=== PATIENT | female | born 1960 | race Caucasian/White ===

== ENCOUNTER 2016-09-24 09:13 | Day surgery (SDC) | payer MEDICARE ==
--- NOTE | 2016-09-24 07:56 | HP ---
DATE OF SURGERY: 09/24/2016 HISTORY OF PRESENT ILLNESS: The patient is a 56 year-old with no prior colonoscopy, no bloody stools, no change in bowel movements or pain. Father with colon cancer and in need of screening colonoscopy. PAST MEDICAL HISTORY: Diabetes. History of some congestive heart failure years ago. PAST SURGICAL HISTORY: Total left knee. Left wrist surgery. Hysterectomy. Cholecystectomy. Three back surgeries. She also had gastric bypass in the past. MEDICATIONS: Doxycycline, buspirone. ALLERGIES: SENSITIVE TO CODEINE. COMPAZINE. HYDROCODONE. CORTISONE. FAMILY HISTORY: Breast cancer and colon cancer. SOCIAL HISTORY: One pack a day smoker. No alcohol abuse. REVIEW OF SYSTEMS: Twelve systems reviewed per admission assessment. No chest pain or palpitations other systems negative or noncontributory as above and per preadmission questionnaire. PHYSICAL EXAMINATION: GENERAL: No acute distress. HEENT: Sclerae nonicteric. NECK: No JVD. CHEST: Equal excursion, nonlabored breathing. CVS: Regular rate and rhythm. ABDOMEN: Soft. No peritoneal signs. EXTREMITIES: No edema or cyanosis. NEURO: Alert, moving extremities symmetrically. No gross motor deficits noted. RECTAL: Deferred timed to endoscopy exam. IMPRESSION: Family history of colon cancer in need of screening colonoscopy as she has not had a prior one. I feel she is a candidate. She was shown the risk sheet, explained the procedure in detail but not limited to bleeding or infection, small risk of bowel injury or perforation possibly requiring open procedure, small risk of missed or nondiagnosis or incomplete exam possibly requiring barium enema, other studies or procedures, general risk of anesthesia or sedation but not limited to. She understands and agrees to the planned procedure and will proceed with outpatient colonoscopy.
[~2016-09-24 09:13] MED LIST: DIPRIVAN 200 MG/20 ML IV ONE; Versed 2 MG/2 ML Injection IV ONE
[2016-09-24] MEDS ORDERED: Lactated Ringers 1,000 ML IV SCH (10:00)
[2016-09-24] MEDS ORDERED: Lactated Ringers 1,000 ML IV ONE (10:54)
[2016-09-24 11:32] VITALS: BP 155/73; PULSE 50; O2SAT 99
--- NOTE | 2016-09-24 11:35 | OP ---
SURGERY DATE/TIME: 09/24/2016 1025 PREOPERATIVE DIAGNOSIS: Need for screening colonoscopy. Family history of colon cancer. POSTOPERATIVE DIAGNOSES: 1) Poor prep limiting exam. 2) Polyp ascending colon. 3) Small raised lesions hepatic flexure, rectosigmoid and rectum. 4) Diverticulosis. 5) Small internal and external hemorrhoids. PROCEDURES: 1) Colonoscopy to terminal ileum with biopsy to terminal ileum and retrograde ileoscopy with hot biopsy of terminal ileum. 2) Hot snare polypectomy ascending colon polyp. 3) Hot biopsy removal of small raised lesion hepatic flexure fold. 4) Hot biopsy removal of small early polyps versus hyperplastic lesions rectosigmoid colon and rectum. SURGEON: Dr. Mohit Peguero. ANESTHESIA: MAC. ESTIMATED BLOOD LOSS: Minimal. INDICATIONS: As noted above. Risks and benefits explained in detail but not limited to and consent obtained. DESCRIPTION OF PROCEDURE AND FINDINGS: The patient is taken to the operating room. MAC anesthesia introduced. After official time out and no disagreement with planned procedure, digital rectal exam did not reveal any rectal masses. Video colonoscope inserted and passed up the tortuous poorly prepped colon with semisolid and liquidy stool throughout the colon. Slowly and carefully navigated around to terminal ileum and appendiceal orifice and valve well visualized. Retrograde ileoscopy was performed. Ileum was grossly unremarkable. There was one small raised lesion. It was felt like this was normal hyperplastic nodule of the terminal ileum but it was removed with hot biopsy forceps. Good hemostasis noted. No gross signs of Crohn's disease or inflammatory bowel disease. The scope is carefully withdrawn from ascending colon. Small polyp was removed with hot snare polypectomy with brief bursts of cautery elevating well away from bowel wall. Good hemostasis noted. The scope is carefully withdrawn. The hepatic flexure, ascending across the transverse colon there was raised area on a fold whether just hyperplastic versus early polyp it was removed with hot biopsy forceps in two pieces in piecemeal fashion. Good hemostasis noted. Otherwise the scope was carefully withdrawn. She had some diverticula in the left colon. There were no signs of any large polyps, masses or obstructing lesions. She had multiple small raised lesions in the rectosigmoid and possible rectum. These were removed with hot biopsy forceps with brief bursts of cautery elevating well away from bowel wall. Otherwise she had some internal and external hemorrhoids. There were no signs of any large polyps, masses or obstructing lesions. Again the prep was very poor limiting the exam. It was felt if the path is benign on all accounts likely would benefit from colonoscopy in no later than two years given her poor quality prep and multiple polyps. The patient tolerated the procedure well. Findings discussed with the family out in the waiting area.
== END 2016-09-24 11:45 | disposition home or self-care (01) ==
LOC: SDC 09:13
PROVIDERS: ATTEND Surgery
PROC: 0DBK8ZX Excision of Ascending Colon, Via Natural or Artificial Opening Endoscopic, Diagnostic (ICD-10-PCS; principal; 2016-09-24)
PROC: 0DBB8ZX Excision of Ileum, Via Natural or Artificial Opening Endoscopic, Diagnostic (ICD-10-PCS; 2016-09-24)
PROC: 0DBP8ZX Excision of Rectum, Via Natural or Artificial Opening Endoscopic, Diagnostic (ICD-10-PCS; 2016-09-24)
PROC: 0DBL8ZX Excision of Transverse Colon, Via Natural or Artificial Opening Endoscopic, Diagnostic (ICD-10-PCS; 2016-09-24)
DX: D12.2 Benign neoplasm of ascending colon (principal); Z80.0 Family history of malignant neoplasm of digestive organs; Z12.11 Encounter for screening for malignant neoplasm of colon; K63.9 Disease of intestine, unspecified; K57.90 Diverticulosis of intestine, part unspecified, without perforation or abscess without bleeding; K64.4 Residual hemorrhoidal skin tags; K64.8 Other hemorrhoids; E11.9 Type 2 diabetes mellitus without complications; I50.9 Heart failure, unspecified; Z98.84 Bariatric surgery status; Z80.3 Family history of malignant neoplasm of breast; Z72.0 Tobacco use
CPT/HCPCS: 00810; 36415; J2250; J2704